=== PATIENT | female | born 1990 ===

== ENCOUNTER 2021-11-20 03:21 | Emergency (ER) | payer SELFPAY ==
[2021-11-20 05:09] VITALS: BP 124/91
== END 2021-11-20 11:01 | disposition left against medical advice (07) ==
LOC: ED 03:21
DX: R11.10 Vomiting, unspecified (principal); Z53.21 Procedure and treatment not carried out due to patient leaving prior to being seen by health care provider

== ENCOUNTER 2022-03-21 10:13 | Emergency (ER) | payer SELFPAY ==
[2022-03-21] MEDS ORDERED: SODIUM CHLORIDE 0.9% 1000 ML 1,000 ML IV ONE ×2 (11:06→14:12)
[2022-03-21] MEDS ORDERED: ONDANSETRON 4 MG/2 ML INJ IV ONE (11:07)
[2022-03-21] MEDS ORDERED: fentaNYL 100 MCG/2 ML INJ IV ONE (11:07)
--- NOTE | 2022-03-21 11:12 | Emergency Department Report ---
HPI - General Chief Complaint: Abdominal Pain Time Seen by Provider: 03/21/22 10:59 - HPI HPI: 32-year-old -[place] female presents to the emergency department with complaint of abdominal pain, nausea and vomiting that started this morning while at work. She describes it as an abdominal cramping pain but "it is on the inside so if you press on my stomach I wont feel it." She denies any past medical history. She says that the pain is 10 out of 10 in intensity. No known aggravating or alleviating factors. She has not taken anything for symptoms prior to presentation. She is a tobacco smoker but denies any illicit drug use. ED Past Medical Hx - Past Medical History Previous Medical History?: No ED Review of Systems ROS: Stated complaint: ABDOMINAL PAIN Other details as noted in HPI Comment: All other systems reviewed and negative Constitutional: denies: chills, fever Eyes: denies: eye pain, vision change ENT: denies: ear pain, throat pain Respiratory: denies: cough, shortness of breath Cardiovascular: denies: chest pain, palpitations Gastrointestinal: abdominal pain, nausea, vomiting Genitourinary: denies: dysuria, discharge Musculoskeletal: denies: back pain, arthralgia Skin: denies: rash, lesions Neurological: denies: headache, weakness Physical Exam - Physical Exam Vital Signs: Vital Signs 03/21/22 03/21/22 10:17 10:40 Temperature 97.9 F 97.8 F Pulse Rate 108 H 70 Respiratory 16 18 Rate Blood Pressure 133/83 87/64 [Left] O2 Sat by Pulse 100 99 Oximetry Physical Exam: GENERAL: The patient is well-developed well-nourished. The patient looks very uncomfortable. HENT: Normocephalic. Atraumatic. Patient has moist mucous membranes. EYES: Extraocular motions are intact. NECK: Supple. Trachea is midline. CHEST/LUNGS: Clear to auscultation. There is no respiratory distress noted. HEART/CARDIOVASCULAR: Regular. There is no tachycardia. There is no murmur. ABDOMEN: Abdomen is soft. Unable to reproduce abdominal tenderness to palpation. Patient has normal bowel sounds. There is no abdominal distention. SKIN: Skin is warm and dry. NEURO: The patient is awake, alert, and oriented. The patient is cooperative. The patient has no focal neurologic deficits. Normal speech. MUSCULOSKELETAL: There is no tenderness or deformity. There is no limitation range of motion. ED Course Vital Signs 03/21/22 03/21/22 10:17 10:40 Temperature 97.9 F 97.8 F Pulse Rate 108 H 70 Respiratory 16 18 Rate Blood Pressure 133/83 87/64 [Left] O2 Sat by Pulse 100 99 Oximetry ED Medical Decision Making - Lab Data Result diagrams: 03/21/22 11:29 03/21/22 11:29 Lab Results 03/21/22 03/21/22 03/21/22 Range/Units 11:29 11:29 11:29 WBC 13.4 H (4.5-11.0) K/mm3 RBC 4.72 (3.65-5.03) M/mm3 Hgb 13.6 (10.1-14.3) gm/dl Hct 40.6 (30.3-42.9) % MCV 86 (79-97) fl MCH 29 (28-32) pg MCHC 33 (30-34) % RDW 14.4 (13.2-15.2) % Plt Count 274 (140-440) K/mm3 Add Manual Diff Complete Total Counted 100 Seg Neutrophils % Project Management Advisor Seg Neuts % (Manual) 91.0 H (40.0-70.0) % Band Neutrophils % 4.0 % Lymphocytes % (Manual) 2.0 L (13.4-35.0) % Reactive Lymphs % (Man) 0 % Monocytes % (Manual) 3.0 (0.0-7.3) % Eosinophils % (Manual) 0 (0.0-4.3) % Basophils % (Manual) 0 (0.0-1.8) % Metamyelocytes % 0 % Myelocytes % 0 % Promyelocytes % 0 % Blast Cells % 0 % Nucleated RBC % Not Reportable Seg Neutrophils # Man 12.2 H (1.8-7.7) K/mm3 Band Neutrophils # 0.5 K/mm3 Lymphocytes # (Manual) 0.3 L (1.2-5.4) K/mm3 Abs React Lymphs (Man) 0.0 K/mm3 Monocytes # (Manual) 0.4 (0.0-0.8) K/mm3 Eosinophils # (Manual) 0.0 (0.0-0.4) K/mm3 Basophils # (Manual) 0.0 (0.0-0.1) K/mm3 Metamyelocytes # 0.0 K/mm3 Myelocytes # 0.0 K/mm3 Promyelocytes # 0.0 K/mm3 Blast Cells # 0.0 K/mm3 WBC Morphology Not Reportable Hypersegmented Neuts Not Reportable Hyposegmented Neuts Not Reportable Hypogranular Neuts Not Reportable Smudge Cells Not Reportable Toxic Granulation Not Reportable Toxic Vacuolation Not Reportable Dohle Bodies Not Reportable Pelger-Huet Anomaly Not Reportable Pérez Rods Not Reportable Platelet Estimate Consistent w auto Clumped Platelets Not Reportable Plt Clumps, EDTA Not Reportable Large Platelets Not Reportable Giant Platelets Not Reportable Platelet Satelliting Not Reportable Plt Morphology Comment Not Reportable RBC Morphology Normal Dimorphic RBCs Not Reportable Polychromasia Not Reportable Hypochromasia Not Reportable Poikilocytosis Not Reportable Anisocytosis Not Reportable Microcytosis Not Reportable Macrocytosis Not Reportable Spherocytes Not Reportable Pappenheimer Bodies Not Reportable Sickle Cells Not Reportable Target Cells Not Reportable Tear Drop Cells Not Reportable Ovalocytes Not Reportable Helmet Cells Not Reportable [place] Bodies Not Reportable [place] Rings Not Reportable [place] Cells Not Reportable Bite Cells Not Reportable Crenated Cell Not Reportable Elliptocytes Not Reportable Acanthocytes (Spur) Not Reportable Rouleaux Not Reportable Hemoglobin C Crystals Not Reportable Schistocytes Not Reportable Malaria parasites Not Reportable [place] Bodies Not Reportable Hem Pathologist Commnt Nq Sodium 135 L (137-145) mmol/L Potassium 3.7 (3.6-5.0) mmol/L Chloride 103.7 (98-107) mmol/L Carbon Dioxide 18 L (22-30) mmol/L Anion Gap 17 mmol/L BUN 12 (7-17) mg/dL Creatinine 0.8 (0.6-1.2) mg/dL Estimated GFR > 60 ml/min BUN/Creatinine Ratio 15 % Glucose 99 (65-100) mg/dL Calcium 9.5 (8.4-10.2) mg/dL Total Bilirubin 0.80 (0.1-1.2) mg/dL Direct Bilirubin < 0.2 (0-0.2) mg/dL Indirect Bilirubin 0.6 mg/dL AST 13 (5-40) units/L ALT 10 (7-56) units/L Alkaline Phosphatase 59 (35-129) units/L Total Protein 7.3 (6.3-8.2) g/dL Albumin 4.4 (3.9-5) g/dL Albumin/Globulin Ratio 1.5 % Lipase 22 (13-60) units/L HCG, Qual Negative (Negative) - Radiology Data Radiology results: report reviewed CT ABDOMEN AND PELVIS WITHOUT CONTRAST INDICATION: ABD Pain. TECHNIQUE: Axial CT images were obtained through the abdomen and pelvis without IV contrast. All CT scans at this location are performed using CT dose reduction for ALARA by means of automated exposure control. COMPARISON: None available. FINDINGS: LOWER CHEST: No significant abnormality. LIVER: No significant abnormality. GALLBLADDER: No significant abnormality. BILE DUCTS: No significant abnormality. PANCREAS: No significant abnormality. SPLEEN: No significant abnormality. ADRENALS: No significant abnormality. RIGHT KIDNEY and URETER: No significant abnormality. LEFT KIDNEY and URETER: No significant abnormality. STOMACH and SMALL BOWEL: No significant abnormality. COLON: No significant abnormality. APPENDIX: Normal. PERITONEUM: No free fluid. No free air. No fluid collection. LYMPH NODES: No significant adenopathy. AORTA and ARTERIES: No significant abnormality. IVC and VEINS: No significant abnormality. URINARY BLADDER: No significant abnormality. REPRODUCTIVE ORGANS: Pedunculated 5 cm leiomyoma arises from the anterior uterine fundus. ADDITIONAL FINDINGS: None. SKELETAL SYSTEM: No significant abnormality. IMPRESSION: 1. No significant abnormality. 2. Leiomyomatous uterus. - Medical Decision Making This patient presented to the emergency department with a complaint of acute abdominal pain, nausea and vomiting that started earlier today. She described it as an internal pain that could not be reproduced or aggravated by palpation. The abdomen is soft, nondistended and nontoxic in appearance. Patient's labs are mostly unremarkable including CBC, metabolic panel, lipase, and the patient is not . There was a very mild leukocytosis of 13,000. Initially patient had some mild hypotension that was responsive to IV fluid. She was then given IV analgesia. CT scan of the abdomen pelvis without contrast shows uterine fibroids, but otherwise no acute process or etiology of the patient's discomfort. During the patient's ED course, she became very rude and aggressive towards ED nursing staff. She began cursing at the charge nurse for no reason. She also cursed at her own nurse, Aline. When she was told that she could not behave in such a manner, the patient demanded to leave AMA. She was explained that we do not yet have the results of the CT scan, and without the results there could be some underlying medical or surgical emergency as a cause of her abdominal di scomfort. However, the patient was not willing to calm down, become respectful, and therefore wait for the CT scan results. The patient signed out AMA. She is awake, alert, oriented, and has a normal decision-making capacity. She understands that she can return to the emergency department at any time if she changes her mind about continued evaluation or with any acute distress. However, she also was told that she would have to be respectful and act appropriately at that time. As stated above, the CT scan did result showing no acute process. Critical Care Time: No Critical care attestation.: If time is entered above; I have spent that time in minutes in the direct care of this critically ill patient, excluding procedure time. ED Disposition Clinical Impression: Abdominal pain, Uterine fibroid Disposition: 07 LEFT AGAINST MEDICAL ADVICE Is pt being admited?: No Instructions: Abdominal Pain (ED) Time of Disposition: 14:46
[2022-03-21 11:40] LABS: Hematocrit 40.6 % (30.3-42.9); Hemoglobin 13.6 gm/dl (10.1-14.3); Mean Corpuscular HGB Conc 33 % (30-34); Mean Corpuscular Volume 86 fl (79-97); Platelet Count 274 K/mm3 (140-440); Red Blood Count 4.72 M/mm3 (3.65-5.03); Red Cell Distribution Width 14.4 % (13.2-15.2)
[2022-03-21 12:48] LABS: Alanine Aminotransferase 10 units/L (7-56); Albumin 4.4 g/dL (3.9-5); BUN/Creatinine Ratio 15; Blood Urea Nitrogen 12 mg/dL (7-17); Calcium 9.5 mg/dL (8.4-10.2); Hemolysis Index 5
[2022-03-21 12:49] LABS: Bilirubin,Direct < 0.2 mg/dL (0-0.2)
[2022-03-21 13:51] LABS: Band Neutrophils # (Manual) 0.5 K/mm3; Basophils % (Manual) 0 % (0.0-1.8); Eosinophils % (Manual) 0 % (0.0-4.3); Total Cells Counted 100
[2022-03-21 13:52] LABS: Platelet Estimate Consistent w Auto; RBC Morphology Normal
[2022-03-21] MEDS ORDERED: MORPHINE 2 MG/1 ML INJ IV ONE (14:11)
--- NOTE | 2022-03-21 14:39 | Cat Scan Report ---
CT ABDOMEN AND PELVIS WITHOUT CONTRAST INDICATION: ABD Pain. TECHNIQUE: Axial CT images were obtained through the abdomen and pelvis without IV contrast. All CT scans at [facility] are performed using CT dose reduction for ALARA by means of automated exposure control. COMPARISON: None available. FINDINGS: LOWER CHEST: No significant abnormality. LIVER: No significant abnormality. GALLBLADDER: No significant abnormality. BILE DUCTS: No significant abnormality. PANCREAS: No significant abnormality. SPLEEN: No significant abnormality. ADRENALS: No significant abnormality. RIGHT KIDNEY and URETER: No significant abnormality. LEFT KIDNEY and URETER: No significant abnormality. STOMACH and SMALL BOWEL: No significant abnormality. COLON: No significant abnormality. APPENDIX: Normal. PERITONEUM: No free fluid. No free air. No fluid collection. LYMPH NODES: No significant adenopathy. AORTA and ARTERIES: No significant abnormality. IVC and VEINS: No significant abnormality. URINARY BLADDER: No significant abnormality. REPRODUCTIVE ORGANS: Pedunculated 5 cm leiomyoma arises from the anterior uterine fundus. ADDITIONAL FINDINGS: None. SKELETAL SYSTEM: No significant abnormality. IMPRESSION: 1. No significant abnormality. 2. Leiomyomatous uterus. Signer Name: Yury Gordon MD Signed: 03/21/2022 2:34 PM Workstation Name: [id number]
[2022-03-21 14:45] VITALS: BP 129/69
== END 2022-03-21 14:45 | disposition left against medical advice (07) ==
LOC: ED 10:13
DX: R10.9 Unspecified abdominal pain (principal); D25.9 Leiomyoma of uterus, unspecified
CPT/HCPCS: 36415; 74176; 80048; 80076; 83690; 84703; 85007; 85025; 96361; 96374; 96375; 99284; J2405; J3010; J7030